=== PATIENT | male | born 1955 | race Caucasian/White ===

== ENCOUNTER 2022-05-04 11:00 | Emergency (ER) | payer MEDICARE, OTHER ==
[~2022-05-04] VITALS: Ht 180.3 cm; Wt 74.8 kg
[~2022-05-04 11:00] MED LIST: AMLODIPINE BESY10 MG PO; CLOBETASOL EMOL15 GM TOP; GABAPENTIN PO; HYDROCODON-ACE1 EAC9 PO; LISINOPRIL10 MG PO; LOVASTATIN40 MG PO; MELOXICAM7.5 MG PO; METFORMIN HCL500 MG PO; OMEPRAZOLE20 MG PO; TERAZOSIN HCL1 MG PO; ULTRAM50 MG PO
[2022-05-04] MEDS ORDERED: METHOCARBAMOL750 MG PO (11:20)
[2022-05-04] MEDS ORDERED: ANAPROX DS550 MG PEG (11:20)
[2022-05-04] MEDS ORDERED: MEDROL4 M2 PO (11:20)
[2022-05-04] MEDS ORDERED: CYCLOBENZAPRINE HCL 10 MG TAB PO ONE (11:30)
[2022-05-04] MEDS ORDERED: METHOCARBAMOL 750 MG TAB PO ONE (11:30)
[2022-05-04] MEDS ORDERED: PREDNISONE 20 MG TAB PO ONE (11:30)
[2022-05-04] MEDS ORDERED: METHOCARBAMOL 750 MG TAB ONE (11:31)
== END 2022-05-04 11:35 | disposition home or self-care (01) ==
LOC: ER 11:05
DX: M54.41 Lumbago with sciatica, right side (principal); E11.65 Type 2 diabetes mellitus with hyperglycemia; I10 Essential (primary) hypertension; E78.5 Hyperlipidemia, unspecified; F32.A Depression, unspecified; K21.9 Gastro-esophageal reflux disease without esophagitis; M10.9 Gout, unspecified
CPT/HCPCS: 36415; 82948; 99282; J7512

== ENCOUNTER 2022-05-07 12:26 | Emergency (ER) | payer MEDICARE ==
[~2022-05-07] VITALS: Ht 180.3 cm; Wt 74.8 kg
[~2022-05-07 12:26] MED LIST changes: +ANAPROX DS550 MG PEG; +MEDROL4 M2 PO; +METHOCARBAMOL750 MG PO
== END 2022-05-07 14:23 | disposition home or self-care (01) ==
LOC: ER 12:39
DX: M54.41 Lumbago with sciatica, right side (principal); I10 Essential (primary) hypertension; E11.9 Type 2 diabetes mellitus without complications; E78.5 Hyperlipidemia, unspecified; K21.9 Gastro-esophageal reflux disease without esophagitis; F32.A Depression, unspecified; M10.9 Gout, unspecified; L40.9 Psoriasis, unspecified; F17.210 Nicotine dependence, cigarettes, uncomplicated
CPT/HCPCS: 74176; 99283